=== PATIENT | female | born 1970 | race Caucasian/White ===

== ENCOUNTER → 2018-03-21 08:36 | Outpatient (CLI) | payer BC, SELFPAY ==
--- NOTE | 2018-03-21 09:00 | US_ITS ---
FNA w guidance, US thyroid HISTORY: ITS.REASON: RT THYROID NEOPLASM ORDERING PHYSICIAN: Arian Jalloh MD PATIENT AGE: 47 years COMPARISON: 02/27/2018 PREBIOPSY ULTRASOUND: Prebiopsy ultrasound planning performed. Dominant nodule noted in the upper pole with central cystic area. Biopsy planning performed with appropriate area marked for biopsy. TECHNIQUE: Following obtaining informed consent, using aseptic technique and local anesthesia with buffered lidocaine, fine-needle aspiration was performed of the nodule of interest using sonographic guidance. 3 passes were made into the nodule with a 25-gauge needle. Specimen was given to cytology. The patient tolerated the procedure well without evidence of immediate complications and left the ultrasound suite in stable condition. CYTOLOGY:Negative for malignancy, findings most consistent with benign follicular nodule IMPRESSION: Successful sonographic guided fine needle aspiration of the right thyroid nodule showing benign findings. No immediate complication
== END ==
PROVIDERS: PCP Internal Medicine; Visit Provider Otolaryngology
DX: D34 Benign neoplasm of thyroid gland (principal)
CPT/HCPCS: 10022; 76536

== ENCOUNTER 2022-05-14 12:08 | Emergency (ER) | payer BC, SELFPAY ==
[2022-05-14 12:50] VITALS: BP 118/89; PULSE 113; RESP 24; TEMP 37.6; O2SAT 94; BMI 31.6
[2022-05-14 13:10] LABS: UTC Strep Screen (Rapid) Positive (Negative)
[2022-05-14 13:11] LABS: UTC Influenza A Antigen Negative (Negative); UTC Influenza B Antigen Negative (Negative)
--- NOTE | 2022-05-14 13:39 | EXP.UTC ---
Discharge Plan Disposition Patient Disposition: Home, Self-Care Condition: Good Prescriptions Prescriptions: New azithromycin [azithromycin] 250 mg tablet 250 mg PO DIRECTED Qty: 6 0RF Rx Instructions: Take two (2) tablets on day #1, then one (1) tablet day #2 thru #5 No Action levothyroxine 100 mcg capsule 100 mcg PO DAILY Qty: 90 4RF Referrals Follow up/Referrals: Provider,Referral, MD [Primary Care Provider] - See instructions Activity Restrictions/Add. Instructions Additional Instructions/Restrictions: Start antibiotics today be sure to take it as ordered with the full length of time although you should start feeling better in 24-48 hours. Change toothbrush and toothpaste 24-48 hours after starting antibiotics Tylenol or Motrin as needed for fever or pain Encourage fluids, water, Gatorade, Powerade, try cold fluids, popsicles, ice cream will make it feel better You are contagious for 24 hours. Avoid kissing anyone, no eating or drinking after anyone. You are contagious. Follow-up the ER for new or worsening symptoms or no noticeable improvement over the next 24-48 hours. Follow-up with PCP this week. Clinical Impressions Clinical Impression: Strep sore throat Instructions Patient Instructions: DI for Strep Throat Discharge ED Provider: Mckenna ([facility])Araceli [facility] [place] HPI General Stated complaint: Bodyache fever sore throat Mode of Arrival: Ambulatory Source of Information: Patient Limitations: No Limitations Time Seen by Provider: 05/14/22 13:39 Description of Symptoms (Recalled from Triage Doc. by RN): PATIENT C/O BODY ACHES, FEVER, SORE THROAT, AND FATIGUE THAT STARTED MONDAY HEENT Symptoms (Recalled from RN notes): Yes Resp Symptoms (Recalled from RN notes): No Skin Symptoms (Recalled from RN notes): No MS Symptoms (Recalled from RN notes): No Functional Status (Recalled from RN notes): WNL History of Present Illness Provider Complaint: 51 yr old female presents for sore throat, body aches,fever and fatigue since Related Data Previous Rx's Medication Instructions Recorded levothyroxine 100 mcg capsule 100 mcg PO DAILY #90 caps 09/06/18 azithromycin 250 mg tablet 250 mg PO DIRECTED #6 tabs 05/14/22 Allergies Allergy/AdvReac Type Severity Reaction Status Date / Time Penicillins Allergy Verified 05/14/22 13:51 Worker's Comp Is this a Worker's Comp case?: No [facility] Disclaimer: The information contained in this section may have been updated after the patient was seen, as this information can be updated by other users. Medical History , COUNTER STITCHER) Anxiety Cancer History of anemia Kidney stone Migraine Thyroid disease Urinary tract infection Surgical History , COUNTER STITCHER) History of hysterectomy History of tubal ligation Social History , COUNTER STITCHER) Smoking Status: Never smoker alcohol intake: never substance use type: denies use current occupational status: employed Travel in the last 8 weeks: None ROS Obtained: Yes All systems reviewed & no additional complaints except as documented Constitutional Constitutional: Reports system reviewed and no additional complaints, except as documented, Reports as per HPI, Reports body ache, Reports fatigue and Reports fever(s) Eyes Eyes: Reports system reviewed and no additional complaints, except as documented ENT Ears, Nose, Mouth, and Throat: Reports system reviewed and no additional complaints, except as documented, Reports as per HPI and Reports sore throat Cardiovascular Cardiovascular: Reports system reviewed and no additional complaints, except as documented Respiratory Respiratory: Reports system reviewed and no additional complaints, except as documented Musculoskeletal Musculoskeletal: Reports system reviewed and no additional complaints, except a
[2022-05-14 13:54] VITALS: BP 118/89; PULSE 113; RESP 24; TEMP 37.6; O2SAT 94
== END 2022-05-14 14:00 | disposition home or self-care (01) ==
PROVIDERS: Emergency Provider Nurse Practitioner Family
DX: J02.0 Streptococcal pharyngitis (principal)
CPT/HCPCS: 87804; 87880; 99212; 99213; G0463